=== PATIENT | female | born 1990 | race Caucasian/White ===

== ENCOUNTER 2020-08-16 11:13 | Outpatient (REF) | payer BC, SELFPAY ==
--- NOTE | 2020-08-16 10:45 | PAPFT_PTH ---
PATIENT: Victorina Ricardo LOC: [facility] U#:[id number] AGE/SX: 30/F ROOM: RE08/16/[address]: SEUN Mccracken : 1990 BED: DIS: 08/16/2020 SPEC #: [id number] RECD: 08/16/20 18:21 STATUS: KADEEMWeston REQ #: [id number] COLE: 08/16/20 10:[address]: Ivy Cabrera DEPT: [facility] Cytology RECD BY: Michelle Riley ENTERED: 08/16/20 18:21 SP TYPE: PAPFT OTHR DR: None Tissues: 1 - CX/ENDOCX FOR PAP SMEARS Procedures: PAP THIN PREP/UVM Screening HPV DNA PROBE Comments: [id number]
[2020-08-18 14:45] LABS: Chlamydia Result Negative (Negative); GC Result Negative (Negative)
== END 2020-08-16 11:33 ==
LOC: LBN 11:13
PROVIDERS: Visit Provider Nurse Practitioner Family
DX: Z11.3 Encounter for screening for infections with a predominantly sexual mode of transmission (principal); Z12.4 Encounter for screening for malignant neoplasm of cervix; Z11.51 Encounter for screening for human papillomavirus (HPV)
CPT/HCPCS: 87491; 87591; 88142; 87624

== ENCOUNTER 2020-09-13 00:21 | Outpatient (CLI) | payer BC, SELFPAY ==
--- NOTE | 2020-09-13 06:30 | DI.US_ITS ---
EXAM: US PELVIS TRANSVAGINAL CLINICAL HISTORY: Pt has IUD, Periods and cramping, no strings seen,pelvic pain,r10.2 TECHNIQUE: Ultrasound of the pelvis was performed both transabdominal and transvaginal. COMPARISON: No exams were available for comparison FINDINGS: UTERUS: Measures 8.6 cm length x 3.4 cm AP x 5 point cm wide. There are no uterine fibroids. Endometrial thickness measures 6 mm. There is no fluid in the endometrial canal. CERVIX: There is an 11 x 9 x 11 millimeter abnormality at the junction of the lower uterine segment a nd cervix which appears partially cystic and partially solid.. Possibly complicated the both in cyst versus other pathology. RIGHT OVARY: Measures 4.3 x 3.4 x 4.2 cm Contains cysts, the largest measuring 3 x 1.8 x 2.7 cm Vascular flow is demonstrated in the right ovary. LEFT OVARY: Not able to be seen on today's study CUL-DE-SAC: Is no fluid in the cul-de-sac. IMPRESSION: 1. IUD is in satisfactory position in the uterine canal. 2. There is a partially solid partially cystic 11 x 9 x 11 millimeter well-defined density in the upp er cervix, unlikely to represent atypical nabothian cysts. This is related to the endocervical canal . This requires follow-up ultrasound in a few weeks time. 3. There is a 3 centimeters cyst in the right ovary. The left ovary is not seen on this study. There is no free fluid in the cul-de-sac and adnexal regions. DATA REPOSITORY: Structure at
== END 2020-09-13 00:22 ==
LOC: DI 00:23
PROVIDERS: PCP Nurse Practitioner Family; Visit Provider Nurse Practitioner Family
DX: R10.2 Pelvic and perineal pain (principal); Z97.5 Presence of (intrauterine) contraceptive device; N88.8 Other specified noninflammatory disorders of cervix uteri; N83.201 Unspecified ovarian cyst, right side
CPT/HCPCS: 76830; 76856

== ENCOUNTER 2020-11-05 02:26 | Outpatient (CLI) | payer BC, SELFPAY ==
[2020-11-05 10:12] LABS: Source Nasal/Nares
[2020-11-05 15:39] LABS: COVID-19 PCR Negative (Negative)
== END 2020-11-05 02:27 | disposition home or self-care (01) ==
LOC: LBO 02:26
PROVIDERS: PCP Nurse Practitioner Family; Visit Provider Family Medicine
DX: Z20.822 Contact with and (suspected) exposure to COVID-19 (principal); Z01.818 Encounter for other preprocedural examination
CPT/HCPCS: 87635

== ENCOUNTER 2020-11-08 05:00 | Outpatient (CLI) | payer BC, SELFPAY ==
[2020-11-08] MEDS: Methacholine 100 MG VIAL IH (17:00)
[2020-11-08] MEDS: Inhaler, Assist Device 1 EACH MC (17:01)
[2020-11-08] MEDS: Albuterol HFA 18 GM 200 PUFF INH IH (17:01)
--- NOTE | 2020-11-25 11:37 | W.PFT ---
Date of service: 11/08/20 Time of Service: 03:02 Pulmonary Function Test Result Interpretation Spirometry: No evidence of obstructive airways disease, no bronchodilator response Lung Volumes: No restriction Diffusion Capacity: Normal Airway Pressure: Normal Impression Normal pulmonary function study Clinical Correlation therefore is recommended. Methacholine Challnege Test Date of Service Date of Service: 11/08/2020 Note After normal full pulmonary function test methacholine challenge testing was carried out up to methacholine concentration of 16 mg/mL. At which point the patient had a 1% drop in FEV1. Impression Negative methacholine challenge test
== END 2020-11-08 05:01 | disposition home or self-care (01) ==
LOC: RT 05:02
PROVIDERS: PCP Nurse Practitioner Family; Visit Provider Nurse Practitioner Family
DX: J45.909 Unspecified asthma, uncomplicated (principal)
CPT/HCPCS: 94060; 94726; 94729; 95070; 94010; J7674

== ENCOUNTER 2021-07-07 23:07 | Outpatient (REF) | payer BC, SELFPAY ==
[2021-07-09 18:23] LABS: COVID-19 RT-PCR UVMMC Result Negative (Negative)
== END 2021-07-07 23:08 | disposition home or self-care (01) ==
LOC: LBN 23:07
PROVIDERS: PCP Nurse Practitioner Family; Visit Provider Nurse Practitioner Family
DX: Z20.822 Contact with and (suspected) exposure to COVID-19 (principal); J06.9 Acute upper respiratory infection, unspecified
CPT/HCPCS: U0003

== ENCOUNTER 2023-02-23 17:53 | Outpatient (REF) | payer BC, SELFPAY ==
[2023-02-23 21:32] LABS: Hemoglobin A1C 5.1 % (<5.7)
[2023-02-23 21:35] LABS: Calculated LDL 92 mg/dL (<100); Cholesterol 155 mg/dL (<200); HDL Cholesterol 43 mg/dL (40-60); TSH (W/Ref FT4) 1.84 uIU/mL (0.36-3.74); Triglyceride 101 mg/dL (<150)
== END 2023-02-23 17:54 | disposition home or self-care (01) ==
LOC: NCHCN 17:53
PROVIDERS: PCP Nurse Practitioner Family; Visit Provider Nurse Practitioner Family
DX: Z00.00 Encounter for general adult medical examination without abnormal findings (principal); R53.83 Other fatigue; F41.8 Other specified anxiety disorders; Z13.1 Encounter for screening for diabetes mellitus; Z83.3 Family history of diabetes mellitus; Z13.220 Encounter for screening for lipoid disorders
CPT/HCPCS: 80061; 83036; 84443

== ENCOUNTER 2023-11-15 08:49 | Outpatient (REF) | payer BC, SELFPAY ==
[2023-11-16 12:37] LABS: Chlamydia Result Negative (Negative); GC Result Negative (Negative)
== END 2023-11-15 08:50 | disposition home or self-care (01) ==
LOC: LBN 08:49
PROVIDERS: PCP Nurse Practitioner Family; Visit Provider Obstetrics & Gynecology
DX: Z70.8 Other sex counseling (principal); Z11.3 Encounter for screening for infections with a predominantly sexual mode of transmission
CPT/HCPCS: 87491; 87591

== ENCOUNTER → 2023-11-21 01:47 | Outpatient (CLI) | payer BC, SELFPAY ==
--- NOTE | 2023-11-21 06:45 | DI.US_ITS ---
Exam(s) US BREAST RT LIMITED MG MAMMO DIAGNOSTIC BI EXAM: MG MAMMO DIAGNOSTIC BI and U/S breast RT limited CLINICAL HISTORY: right breast lump,n63.10. TECHNIQUE: Craniocaudal and mediolateral oblique Full Field Digital Mammography views with Computer Aided Diagnosis followed by Tomosynthesis and right breast ultrasound. COMPARISON: This is a baseline examination. FINDINGS: Mammography/Tomosynthesis: Masses/Architectural Distortion: None seen. Microcalcifictions: No suspicious pleomorphic-type are seen. Skin Thickening/Nipple Retraction: None. Limited right breast US: Echotexture: Normal appearance of the glandular tissue. Shadowing: No suspicious foci. Cyst: None. Solid lesions: None seen. Ductal dilation: None. IMPRESSION: 1. No evidence of malignancy is noted. A negative mammogram and ultrasound should not preclude biopsy of a clinically suspicious mass. 2. Unless there is more urgent need, screening mammography as per [place] [employer] guidelines. 3. The findings were discussed with the patient on the date of the examination. BI-RADS Category 1 - Negative Breast Density - Category B - Scattered areas of fibroglandular density Breast density Category C or D implies that the patient has dense breast tissue. Dense breast tissue can make it harder to find cancer on a mammogram. Dense breast tissue is also associated with an incr eased risk of breast cancer. This information about the result of the mammogram report was provided to the patient to raise their awareness. Use this report when you speak with the patient about their risks for breast cancer, which includes their family history. At that time, you may recommend additional screening tests (Ultrasoun d or MRI) as these tests may add significant information. A negative radiographic report should not delay biopsy if a dominant or clinically suspicious mass is present. Up to ten percent of cancers are not identified on mammography. A negative report may reinforce clinical impression. Adenosis and dense breasts may obscure an underlying neoplasm. False positive reports average 6 to 10%. Patient will receive a letter notifying them of these results.
== END ==
PROVIDERS: PCP Nurse Practitioner Family; Visit Provider Obstetrics & Gynecology
DX: R92.8 Other abnormal and inconclusive findings on diagnostic imaging of breast (principal); Z12.31 Encounter for screening mammogram for malignant neoplasm of breast
CPT/HCPCS: 76642; 77062; 77066; G0279

== ENCOUNTER 2024-03-11 02:42 | Outpatient (CLI) | payer BC, SELFPAY ==
[2024-03-11 13:43] LABS: HCT 42.1 % (36.0-46.0); HGB 13.7 g/dL (11.2-15.7)
== END 2024-03-11 02:43 | disposition home or self-care (01) ==
LOC: LBO 02:42
PROVIDERS: PCP Nurse Practitioner Family; Visit Provider Obstetrics & Gynecology
DX: Z01.818 Encounter for other preprocedural examination (principal)
CPT/HCPCS: 36415; 86850; 86900; 86901; 85014; 85018

== ENCOUNTER 2024-03-12 06:11 | Day surgery (SDC) | payer BC, SELFPAY ==
[2024-03-12] VITALS (21 sets, daily range): BP systolic 86–126; BP diastolic 44–84; PULSE 64–98; RESP 12–26; TEMP 36.5–37; O2SAT 93–100; BMI 32.7
[2024-03-12] MEDS: Lactated Ringers 1,000 ML 125 ML IV (06:48)
--- NOTE | 2024-03-12 07:15 | ANES.PREOP_ITS ---
General Info Date of Service Date Performed: 03/12/24 Height: 5 ft 4 in Weight: 86.4 kg Body Mass Index (BMI): 32.7 Surgical Procedure: Operation Date: 03/12/24 07:40 Proposed Procedure Side Surgeon p Salpingectomy Laparoscopic Bilateral Khushi Rodgers MD Meds Allergies and Home Medications Allergies Allergy/AdvReac Type Severity Reaction Status Date / Time No Known Drug Allergies Allergy Other (See Verified 03/12/24 06:43 Comment) Home Medication ?Medication ?Instructions ?Recorded buspirone 10 mg tablet 10 mg PO BID PRN 10/19/22 levonorgestrel 21 mcg/24 hr (up to 1 device intrauterine ONCE 10/19/22 8 years) 52 mg intrauterine device (Mirena) sertraline 100 mg tablet 100 mg PO DAILY 10/19/22 Current Visit Medications: Current Medications Generic Name Dose Route Start Last Admin Trade Name Freq PRN Reason Stop Dose Admin Ringer's Solution 1,000 mls @ 125 mls/hr 03/12/24 06:00 03/12/24 06:48 IV 03/12/24 23:59 125 mls/hr INFUSION ALEXX Administration IV Miscellaneous Supplies 1 each 03/12/24 06:00 Iv Access IV 03/12/24 23:59 DIRECTED ALEXX Sodium Chloride 0 ml 03/12/24 06:00 Normal Saline Flush 10 Ml Syr IV 03/12/24 23:59 PRN PRN Sodium Chloride 0 ml 03/12/24 06:00 Normal Saline 10 Ml Vial IJ 03/12/24 23:59 DIRECTED PRN Sterile Water 0 ml 03/12/24 06:00 Water,Injection,Sterile 10 Ml Vial IJ 03/12/24 23:59 DIRECTED PRN PFSH Active Problems Active Problems: Problem Status Onset Code Migraine with aura Acute G43.109 Medical History Medical History Lump of right breast Depression Medical History Comments:: 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 Tobacco Smoking/Tobacco Use Status: Never Alcohol Alcohol Intake: current Alcohol intake frequency: holidays/special occasions only Substance Use Substance use: Never Substance use type: does not use Prental History History 0 Para Hx # Term Pregnancies Multiple births Hx # Pregnancies Ectopic pregnancies AB induced Hx Number of Living Children AB spontaneous Vital Signs and Lab Results Vital Signs Most Recent Vital Signs in EMR: Most Recent Vital Signs Temp Pulse Resp BP Pulse Ox 37.0 C 98 H 16 126/84 100 03/12/24 06:44 03/12/24 06:44 03/12/24 06:44 03/12/24 06:44 03/12/24 06:44 Point of Care Results Point of Care Results: POC- Test(urine) Negative 03/12/24 06:44 Lab Results Blood Type / Crossmatch: Antibody Screen NEGATIVE 03/11/24 Complete Blood Count: Hemoglobin 13.7 g/dL (11.2-15.7) 03/11/24 13:30 Hematocrit 42.1 % (36.0-46.0) 03/11/24 13:30 Complete Metabolic Panel: No Data to Display Liver Function Panel: No Data to Display Coagulation Panel: No Data to Display Cardiac Panel: No Data to Display Arterial Blood Gas: No Data to Display Venous Blood Gas: No Data to Display Pancreas Panel: No Data to Display Thyroid Panel: No Data to Display Infectious Disease: No Data to Display Blood Cultures: No Data to Display Toxicology Panel: No Data to Display Panel: No Data to Display Imaging and Studies Imaging and Studies Study information below may be from another EMR and interpreted by another provider. Please see original notes in EMR for more complete details. Pulmonary Function Summary: Pulmonary Function Test Result Interpretation Spirometry: No evidence of obstructive airways disease, no bronchodilator response Lung Volumes: No restriction Diffusion Capacity: Normal Airway Pressure: Normal Impression Normal pulmonary function study Clinical Correlation therefore is recommended. Methacholine Challnege Test Date of Service Date of Service: 11/08/2020 Note After normal full pulmonary function test methacholine challenge testing was ca rried out up to methacholine concentration of 16 mg/mL. At which point the patient had a 1% drop in FEV1. Impression Negative methacholine challenge test Anesthesia Assessment and Plan Anesthesia History Personal History: No History of Anesthesia Complications Family History: No Family History of Anesthesia Complications Exercise Tolerance Exercise Tolerance: Metabolic Equivalents>4 Pertinent Negatives Pertinent Negatives: No Symptoms of GERD, No Major Cardiovascular Symptoms or Complaints, No Major Pulmonary Symptoms or Complaints and No History of CVA/TIA Cardiac & Pulmonary Exam Cardiac Exam: Normal S1/S2 Heart Sounds Pulmonary Exam: Clear Bilateral Breath Sounds Implantable Cardiac Device Does patient have a Pacemaker or an ICD?: No Airway Exam Known Difficult Airway: No Mallampati Class: 2 Mouth Opening: Normal (> 3cm) Thyromental Distance: Greater than 3 cm Neck Range of Motion: Full ROM Neck Circumference: Thick Teeth Condition: Normal Dentition ASA Classification ASA Score: ASA 2 Emergency Case?: No NPO Status NPO Status: NPO Clears >2 hours, Solids >8 hours Status Status: Negative HCG Anesthesia Plan Resuscitation Status: Full Code Anesthesia Technique: General Anesthesia Airway Planned: Endotracheal Tube Monitors Used: Standard Monitors
[2024-03-12] MEDS: Bupivacaine 0.25% Pres-Free 30 ML VIAL (07:57)
--- NOTE | 2024-03-12 08:09 | FALL_PTH ---
PATIENT: Victorina Ricardo LOC: [facility] U#:[id number] AGE/SX: 33/F ROOM: RE03/12/[address]: Khushi Rodgers MD : 1990 BED: DIS: 03/12/2024 SPEC #: [id number] RECD: 03/12/24 12:42 STATUS: JACK REQ #: [id number] COLE: 03/12/24 08:[address]: Khushi Rodgers DEPT: Surgical Specimen RECD BY: Michelle Riley ENTERED: 03/12/24 12:44 SP TYPE: Fall OTHR DR: Junie Grubbs Tissues: 1 - FALLOPIAN TUBE (STERILIZATION) Procedures: GROSS AND MICRO LEVEL 2 Comments: [id number]
[2024-03-12] MEDS: fentaNYL 100 MCG/2 ML VIAL IVP (08:58)
--- NOTE | 2024-03-12 09:16 | ROE_ITS ---
Date of service: 03/12/24 Time of Service: 08:00 Operative Note Operative Note DATE OF PROCEDURE: 03/12/24 PRE-OP DIAGNOSIS: Desires permanent sterilization POST-OP DIAGNOSIS: same Absence of left ovary and tube. Uterine fibroids PROCEDURE: Laparoscopic right salpingectomy SURGEON: Khushi Rodgers ASSISTING SURGEON: Makenna Randle Refer to Anesthesia Record ESTIMATED BLOOD LOSS: 10 PATHOLOGY: other (right tube) COMPLICATIONS: None Patient was transported to: PACU Patient's condition: stable Indications: Pt desires permanent sterilization. She has a Mirena IUD in for cycle control but wants back up permanent sterilization as she is sure she does not want to become . Findings: Normal external genitalia, vagina and cervix. The uterus appears normal with an ~2-3cm pedunculated fibroid on the left fundus and a smaller fibroid just inferior to it. The right tube appears normal and the right ovary has some small cyst in it but is otherwise normal. 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 The round ligament is visualized and the fibroid is near where the adnexa would normally attach. Procedure Description: After informed consent was signed the patient was taken to the operating room and given general anesthesia.? SCDs were placed on her legs.? She was prepped and draped in the dorsal lithotomy position in the [facility].? Her bladder was drained of urine via a straight catheter. A speculum was placed into the vagina to expose the cervix and a hulka manipulator was placed into the cervix. The speculum was removed. Gloves were changed and attention was turned to the a bdomen. The infraumbilical fold was grasped and injected with 0.25% marcaine with epinephrine. A 5mm incision was made in the infraumbilical fold with the scalpel. A hemostat was used to bluntly dissect the subcuticular layers. The fascia was grasped with sindy clamps and incised. The incision was extended with blunt pressure. The visiport was used to enter the abdomen under direct visualization. Once entrance to the abdominal cavity was confirmed the CO2 was turned on and the abdomen was insufflated. Two lateral 5mm ports were then placed under direct visualization. The right tube was identified and followed to the fimbriated end. The tube was grasped and elevated and the mesosalpinx was clamped, cauterized and cut with the ligasure device. The was continued along the length of the tube. The proximal end of the tube was then transected with the ligasure. Good hemostasis was noted. The tube was removed through the lateral port and noted to be intact. When attention was turned to the left adnexa the left tube and ovary could not be identified. The pedunculated fibroid was noted near where the tube and utero-ovarian ligament would attach but there was no e/o either one. The broad ligament and the round ligament were normal appearing. A thorough examination of the left pelvis and uterus was performed with no e/o the tube or ovary. The ports were removed. The gas was released from the abdomen. The skin incisions were then closed with 4-0 vicryl. Mastisol and steristrips were placed. The manipulator was removed. The patient was placed back into the supine position.? She was moved to the stretcher and taken to the recovery room in stable condition.
--- NOTE | 2024-03-12 10:06 | W.ANESPOSTOP ---
Postoperative Evaluation Date, Time and Location Date Performed: 03/12/24 Time Performed: 10:06 Patient Location: Day Surgery Unit Vital Signs Most Recent Imported Vital Signs: Most Recent Vital Signs Temp Pulse Resp BP Pulse Ox 36.8 C 83 16 118/78 99 03/12/24 09:48 03/12/24 09:48 03/12/24 09:48 03/12/24 09:48 03/12/24 09:48 Pain Score Most Recent Pain Score: Most Recent Pain Score Pain Level 1 03/12/24 09:48 Assessment Mental Status: Awake (Alert & Oriented to Patient Baseline) Airway and Respiratory Function: Patent airway with normal (patient baseline) respiratory exam Cardiovascular Function: Hemodynamically Stable Hydration Status: Adequately Hydrated Nausea & Vomiting: No Nausea or Vomiting Pain: Pain is tolerable per patient Peripheral Nerve Block: Patient did not receive a nerve block
--- NOTE | 2024-03-12 10:58 | W.PM.DSUDISC ---
Date of service: 03/12/24 Time of Service: 10:58 Discharge Plan Disposition Patient Disposition: Home Condition: Good Discharge Details Attending Provider: Khushi Rodgers Primary Care Provider: Junie Grubbs Home Meds and New Rx's Prescriptions: No Action Mirena 21 mcg/24 hours (8 yrs) 52 mg intrauterine device 1 device intrauterine ONCE Rx Instructions: as a single dose sertraline 100 mg tablet 100 mg PO DAILY buspirone 10 mg tablet 10 mg PO BID PRN Discharge Instructions Stand Alone Forms: Anesthesia Discharge Inst., [facility]SU [facility] [address] [facility] SurgeryW/Incision Activity:: No lifting >20lbs Remove Dressings/Wound Care:: Do Not Remove Shower/Bathe:: 24 hours Diet:: As Tolerated Discharge Orders Discharge Orders: Discharge Order (Routine); Ordered 03/12/24 Ordered By: Khushi Rodgers Discharge Data Discharge Date/Time-TO BE ENTERED AT DEPARTURE: 03/12/24 10:23
== END 2024-03-12 10:23 | disposition home or self-care (01) ==
PROVIDERS: PCP Nurse Practitioner Family; Visit Provider Obstetrics & Gynecology
PROC: (CPT 58661; principal; 2024-03-12 07:30)
DX: Z30.2 Encounter for sterilization (principal); D25.9 Leiomyoma of uterus, unspecified; Q50.6 Other congenital malformations of fallopian tube and broad ligament; N83.8 Other noninflammatory disorders of ovary, fallopian tube and broad ligament
CPT/HCPCS: 58661; 81025; 88302; J0665; J1100; J1885; J2001; J2405; J2704; J3010